=== PATIENT | female | born 1945 | race Caucasian/White ===

== ENCOUNTER 2017-01-25 01:34 | Emergency (ER) | payer SELFPAY ==
--- NOTE | 2017-01-25 02:07 | ED CLINICAL REPORT ---
Clinical Report - Physicians/Mid Levels [facility] [address] [place] [place] [address] 01/25/2017 1:37 Patient: CHONG MINER Time Seen: 01:37. Arrived- By ambulance. Historian- patient and EMS personnel. HISTORY OF PRESENT ILLNESS Chief Complaint: SKIN RASH. This started about 2 months ago and is still present. It was gradual in onset and has been constant and waxing/waning. It is described as itchy. It has been generalized in location and located on the right upper extremity and right lower extremity. A possible cause has been identified. Recent medical care: The patient was seen recently at another facility in a clinic. Seen for similar symptoms. ( she describes a treatment regimen that is consistent with scabies). REVIEW OF SYSTEMS No chills, fever, sweats, calf pain or chest pain. No abdominal pain, black stools, bloody stools, constipation or diarrhea. No nausea, vomiting or urinary problems. She has had a cough productive of moderate amounts of sputum (chronically). The patient is a smoker. No change in baseline cough. She has had mild pedal edema involving the right and left leg (chronically). All systems otherwise negative, except as recorded above. PAST HISTORY Problems: Pedal Edema. COPD - Chronic Obstructive Pulmonary Disease. Asthma. Additional Surgeries: Colon Polyps. Hysterectomy. Tonsillectomy. Medications: Oil of Lavender. Allergies: No Known Drug Allergy. SOCIAL HISTORY Current every day heavy tobacco smoker- 1-2 packs per day. History of occasional drug use: marijuana. No alcohol use. FAMILY HISTORY her daughter with whom she resides presents with similar symptoms. ADDITIONAL NOTES The nursing notes have been reviewed. PHYSICAL EXAM Vital Signs: 01/25/2017 01:33 BP: 165/78. HR: 87. RR: 16. O2 saturation: 91%. Temp: 98 F. Pain level now: 3/10. Have been reviewed. Oxygen saturation: 95 % room air during my evaluation. Appearance: Alert. Eyes: Pupils equal, round and reactive to light. Neck: Neck supple. CVS: Normal heart rate and rhythm. Heart sounds normal. Respiratory: No respiratory distress. Decreased air movement. No rales, rhonchi or wheezes. Abdomen: Nontender. No organomegaly. Skin: No erythema. No cellulitis. Rash present on the right hand and left hand. Rash present on the right foot and left foot. Extremities: Bilateral mild pitting edema of the lower extremities. No calf tenderness. PROGRESS AND PROCEDURES Course of Care: Patient is stable. Patient/family counseled. Old medical records reviewed. Disposition: Discharged. Condition: stable. CLINICAL IMPRESSION Skin rash. Possible contact dermatitis. INSTRUCTIONS Warnings: Further evaluation is necessary. GENERAL WARNINGS: Return or contact your physician immediately if your condition worsens or changes unexpectedly, if not improving as expected, or if other problems arise. Your Current Medications: STOP TAKING THE FOLLOWING MEDICATIONS: Oil of Lavender*. CONTINUE TAKING THE FOLLOWING MEDICATIONS: HydrOXYzine HCl Oral : 25 mg, prn, for anxiety. Prescription Medications: Hydrocortisone 1% cream: apply to affected areas three times daily for 1 week, as needed. Dispense fifteen (15) grams. Substitution is permissible. Follow-up: Follow up with your doctor in seven days. Call for an appointment. Follow up with a gimp buttonhole machine operator- as recommended by your primary care physician- if not better. Understanding of the discharge instructions verbalized by patient. (Electronically signed by Jg Valle MD 01/25/2017 8:47)
--- NOTE | 2017-01-25 02:07 | ED NURSING NOTES ---
Clinical Report - Nurses [facility] [address] [place] [address] 01/25/2017 1:37 Patient: CHONG MINER TRIAGE Triage time 01:30 Jan 25 2017. Acuity: LEVEL 3. Chief Complaint: (Insect Ifestation and Pollywogs in her stool). Alert. LIZZETTE COMA SCORE: [place] Coma Scale: 15- eyes open spontaneously (4); best verbal response- oriented x 4 (5); best motor response- obeys commands (6). --01:49 Jagdish Greer R.N. 01:33 01/25/17. BP: 165/78. HR: 87. RR: 16. O2 saturation: 91%. Temp: 98 F. Pain level now: 01/12. --01:49 Jagdish Greer R.N. 01:33. --03:47 Jagdish Greer R.N. Weight: 81.6 kg stated. Height/Length: 66 inches Per Patient. BMI: 29. --01:48 Jagdish Greer R.N. Medications Oil of Lavender. --01:44 Jagdish Greer R.N. HydrOXYzine HCl Oral 25 mg, as needed (for anxiety). --01:51 Jagdish Greer R.N. Allergies No Known Drug Allergy. --01:42 Jagdish Greer R.N. Medication/allergy information source: the patient. --01:49 Jagdish Greer R.N. History Arrived by EMS. Historian: patient. Accompanied by daughter. [facility] ( Insect Infestation and pollywogs in her stools). Onset. (about 2 months ago). She has had a cough. Treatment MOLDER: (Oil of Lavender helps keep the insects at bay). PAST MEDICAL HX: Immunizations: status is unknown. The patient is post-menopausal. SOCIAL HX: Heavy tobacco smoker- 1-2 packs per day. History of drug use: marijuana. (rarely does pot). No alcohol use. No infectious disease exposure. ABUSE ASSESSMENT: No report of abuse. FALL RISK ASSESSMENT: Fall risk assessment completed. No fall risk identified. NUTRITIONAL RISK ASSESSMENT: The nutritional risk assessment revealed no deficiencies. FUNCTIONAL ASSESSMENT: Functional assessment: no impairments noted. LEARNING NEEDS ASSESSMENT: The learning needs assessment revealed no barriers. SKIN INTEGRITY ASSESSMENT: Skin integrity risk assessment completed. No skin integrity risk identified. --01:49 Jagdish Greer R.N. SKIN INTEGRITY ASSESSMENT: Skin integrity risk assessment was performed. (possible low SaO2 2nd to COPD). Skin integrity risk assessment completed. No skin integrity risk identified. NUTRITIONAL RISK ASSESSMENT: The nutritional risk assessment revealed no deficiencies. FUNCTIONAL ASSESSMENT: Functional assessment: no impairments noted. FALL RISK ASSESSMENT: Fall risk assessment completed. Risk factors identified include patient age greater than 65 years. LEARNING NEEDS ASSESSMENT: A learning needs assessment was performed. Factors affecting the patient's ability to learn include physical limitations. --03:47 Jagdish Greer R.N. PROBLEMS: Pedal Edema. COPD - Chronic Obstructive Pulmonary Disease. Asthma. --01:43 Jagdish Greer R.N. ADDITIONAL SURGERIES: Colon Polyps. Hysterectomy. Tonsillectomy. --01:43 Jagdish Greer R.N. Interventions ID band on patient. To treatment room. --01:49 Jagdish Greer R.N. PHYSICAL ASSESSMENT GENERAL / NEURO / PSYCH: Alert. Oriented X 4. HEENT: No facial asymmetry noted. Mucous membranes are pink. RESPIRATORY: Mild respiratory distress. CVS: Normal sinus rhythm noted. GI / : Abdomen soft. SKIN: Skin is warm and dry. Normal skin turgor. --01:50 Jagdish Greer R.N. NURSING PROGRESS NOTES Patient gowned. Reassurance given. Patient identifiers checked. Call light placed in reach. Side rails up x 1. Bed placed in lowest position. Brakes of bed on. Patient ready for evaluation- chart flagged and ED physician notified. --01:50 Jagdish Greer R.N. DISPOSITION / DISCHARGE Departure time: 214. --02:35 Jagdish Greer R.N. 02:15. Condition at departure: improved. No learning barriers present. Discharge instructions provided and reviewed with the patient. Reviewed medication(s) (prescription given to pt). Reviewed referral to family practice. Patient verbalized understanding. Written instructions provided in Maltese. The patient was discharged by the physician. She was discharged home and accompanied by family. She left the Emergency Department ambulatory and via private vehicle. Family member driving. --02:38 Jagdish Greer R.N. Locked/Released at 01/25/2017 3:47 by Jagdish Greer R.N.
--- NOTE | 2017-01-25 02:07 | ED NURSING NOTES ---
Clinical Report - Nurses [facility] [address] [place] [address] 01/25/2017 1:37 Patient: CHONG MINER TRIAGE Triage time 01:30 Jan 25 2017. Acuity: LEVEL 3. Chief Complaint: (Insect Ifestation and Pollywogs in her stool). Alert. LIZZETTE COMA SCORE: [place] Coma Scale: 15- eyes open spontaneously (4); best verbal response- oriented x 4 (5); best motor response- obeys commands (6). --01:49 Jagdish Greer R.N. 01:33 01/25/17. BP: 165/78. HR: 87. RR: 16. O2 saturation: 91%. Temp: 98 F. Pain level now: 01/12. --01:49 Jagdish Greer R.N. 01:33. --03:47 Jagdish Greer R.N. Weight: 81.6 kg stated. Height/Length: 66 inches Per Patient. BMI: 29. --01:48 Jagdish Greer R.N. Medications Oil of Lavender. --01:44 Jagdish Greer R.N. HydrOXYzine HCl Oral 25 mg, as needed (for anxiety). --01:51 Jagdish Greer R.N. Allergies No Known Drug Allergy. --01:42 Jagdish Greer R.N. Medication/allergy information source: the patient. --01:49 Jagdish Greer R.N. History Arrived by EMS. Historian: patient. Accompanied by daughter. [facility] ( Insect Infestation and pollywogs in her stools). Onset. (about 2 months ago). She has had a cough. Treatment STRATEGIC ACCOUNT EXECUTIVE: (Oil of Lavender helps keep the insects at bay). PAST MEDICAL HX: Immunizations: status is unknown. The patient is post-menopausal. SOCIAL HX: Heavy tobacco smoker- 1-2 packs per day. History of drug use: marijuana. (rarely does pot). No alcohol use. No infectious disease exposure. ABUSE ASSESSMENT: No report of abuse. FALL RISK ASSESSMENT: Fall risk assessment completed. No fall risk identified. NUTRITIONAL RISK ASSESSMENT: The nutritional risk assessment revealed no deficiencies. FUNCTIONAL ASSESSMENT: Functional assessment: no impairments noted. LEARNING NEEDS ASSESSMENT: The learning needs assessment revealed no barriers. SKIN INTEGRITY ASSESSMENT: Skin integrity risk assessment completed. No skin integrity risk identified. --01:49 Jagdish Greer R.N. SKIN INTEGRITY ASSESSMENT: Skin integrity risk assessment was performed. (possible low SaO2 2nd to COPD). Skin integrity risk assessment completed. No skin integrity risk identified. NUTRITIONAL RISK ASSESSMENT: The nutritional risk assessment revealed no deficiencies. FUNCTIONAL ASSESSMENT: Functional assessment: no impairments noted. FALL RISK ASSESSMENT: Fall risk assessment completed. Risk factors identified include patient age greater than 65 years. LEARNING NEEDS ASSESSMENT: A learning needs assessment was performed. Factors affecting the patient's ability to learn include physical limitations. --03:47 Jagdish Greer R.N. PROBLEMS: Pedal Edema. COPD - Chronic Obstructive Pulmonary Disease. Asthma. --01:43 Jagdish Greer R.N. ADDITIONAL SURGERIES: Colon Polyps. Hysterectomy. Tonsillectomy. --01:43 Jagdish Greer R.N. Interventions ID band on patient. To treatment room. --01:49 Jagdish Greer R.N. PHYSICAL ASSESSMENT GENERAL / NEURO / PSYCH: Alert. Oriented X 4. HEENT: No facial asymmetry noted. Mucous membranes are pink. RESPIRATORY: Mild respiratory distress. CVS: Normal sinus rhythm noted. GI / : Abdomen soft. SKIN: Skin is warm and dry. Normal skin turgor. --01:50 Jagdish Greer R.N. NURSING PROGRESS NOTES Patient gowned. Reassurance given. Patient identifiers checked. Call light placed in reach. Side rails up x 1. Bed placed in lowest position. Brakes of bed on. Patient ready for evaluation- chart flagged and ED physician notified. --01:50 Jagdish Greer R.N. DISPOSITION / DISCHARGE Departure time: 214. --02:35 Jagdish Greer R.N. 02:15. Condition at departure: improved. No learning barriers present. Discharge instructions provided and reviewed with the patient. Reviewed medication(s) (prescription given to pt). Reviewed referral to family practice. Patient verbalized understanding. Written instructions provided in [place] Island[place]. The patient was discharged by the physician. She was discharged home and accompanied by family. She left the Emergency Department ambulatory and via private vehicle. Family member driving. --02:38 Jagdish Greer R.N. Locked/Released at 01/25/2017 3:47 by Jagdish Greer R.N.
--- NOTE | 2017-01-25 02:07 | ED CLINICAL REPORT ---
Clinical Report - Physicians/Mid Levels [facility] [address] [place] [address] 01/25/2017 1:37 Patient: CHONG MINER Time Seen: 01:37. Arrived- By ambulance. Historian- patient and EMS personnel. HISTORY OF PRESENT ILLNESS Chief Complaint: SKIN RASH. This started about 2 months ago and is still present. It was gradual in onset and has been constant and waxing/waning. It is described as itchy. It has been generalized in location and located on the right upper extremity and right lower extremity. A possible cause has been identified. Recent medical care: The patient was seen recently at another facility in a clinic. Seen for similar symptoms. ( she describes a treatment regimen that is consistent with scabies). REVIEW OF SYSTEMS No chills, fever, sweats, calf pain or chest pain. No abdominal pain, black stools, bloody stools, constipation or diarrhea. No nausea, vomiting or urinary problems. She has had a cough productive of moderate amounts of sputum (chronically). The patient is a smoker. No change in baseline cough. She has had mild pedal edema involving the right and left leg (chronically). All systems otherwise negative, except as recorded above. PAST HISTORY Problems: Pedal Edema. COPD - Chronic Obstructive Pulmonary Disease. Asthma. Additional Surgeries: Colon Polyps. Hysterectomy. Tonsillectomy. Medications: Oil of Lavender. Allergies: No Known Drug Allergy. SOCIAL HISTORY Current every day heavy tobacco smoker- 1-2 packs per day. History of occasional drug use: marijuana. No alcohol use. FAMILY HISTORY her daughter with whom she resides presents with similar symptoms. ADDITIONAL NOTES The nursing notes have been reviewed. PHYSICAL EXAM Vital Signs: 01/25/2017 01:33 BP: 165/78. HR: 87. RR: 16. O2 saturation: 91%. Temp: 98 F. Pain level now: 3/10. Have been reviewed. Oxygen saturation: 95 % room air during my evaluation. Appearance: Alert. Eyes: Pupils equal, round and reactive to light. Neck: Neck supple. CVS: Normal heart rate and rhythm. Heart sounds normal. Respiratory: No respiratory distress. Decreased air movement. No rales, rhonchi or wheezes. Abdomen: Nontender. No organomegaly. Skin: No erythema. No cellulitis. Rash present on the right hand and left hand. Rash present on the right foot and left foot. Extremities: Bilateral mild pitting edema of the lower extremities. No calf tenderness. PROGRESS AND PROCEDURES Course of Care: Patient is stable. Patient/family counseled. Old medical records reviewed. Disposition: Discharged. Condition: stable. CLINICAL IMPRESSION Skin rash. Possible contact dermatitis. INSTRUCTIONS Warnings: Further evaluation is necessary. GENERAL WARNINGS: Return or contact your physician immediately if your condition worsens or changes unexpectedly, if not improving as expected, or if other problems arise. Your Current Medications: STOP TAKING THE FOLLOWING MEDICATIONS: Oil of Lavender*. CONTINUE TAKING THE FOLLOWING MEDICATIONS: HydrOXYzine HCl Oral : 25 mg, prn, for anxiety. Prescription Medications: Hydrocortisone 1% cream: apply to affected areas three times daily for 1 week, as needed. Dispense fifteen (15) grams. Substitution is permissible. Follow-up: Follow up with your doctor in seven days. Call for an appointment. Follow up with a warp hanger- as recommended by your primary care physician- if not better. Understanding of the discharge instructions verbalized by patient. (Electronically signed by Jg Valle MD 01/25/2017 8:47)
--- NOTE | 2017-01-25 08:47 | ED MED RECONCILIATION SUMMARY ---
Patient: CHONG MINER Medication Reconciliation Report VisitID: [id number] [address] [place] [address] 71y, F Registration Date/Time: 01/25/2017 Weight: 81.6 kg Height/Length: 66 in. BMI: 29.0 ALLERGIES: No Known Drug Allergy The patient's Home Medications are listed below: STOP TAKING THE FOLLOWING MEDICATIONS: Oil of Lavender CONTINUE TAKING THE FOLLOWING MEDICATIONS: HydrOXYzine HCl Oral 25 mg, for anxiety The source(s) of the original Home Medication information: patient The following Medications were given to the patient in the Emergency Department: None. The following Medications were prescribed to the patient: Hydrocortisone 1% cream: apply to affected areas three times daily for 1 week, as needed. Dispense fifteen (15) grams. Substitution is permissible. -- Jg Valle MD
--- NOTE | 2017-01-25 08:47 | ED MED RECONCILIATION SUMMARY ---
Patient: CHONG MINER Medication Reconciliation Report [facility] VisitID: [id number] [address] [place] [address] 71y, F Registration Date/Time: 01/25/2017 Weight: 81.6 kg Height/Length: 66 in. BMI: 29.0 ALLERGIES: No Known Drug Allergy The patient's Home Medications are listed below: STOP TAKING THE FOLLOWING MEDICATIONS: Oil of Lavender CONTINUE TAKING THE FOLLOWING MEDICATIONS: HydrOXYzine HCl Oral 25 mg, for anxiety The source(s) of the original Home Medication information: patient The following Medications were given to the patient in the Emergency Department: None. The following Medications were prescribed to the patient: Hydrocortisone 1% cream: apply to affected areas three times daily for 1 week, as needed. Dispense fifteen (15) grams. Substitution is permissible. -- Jg Valle MD
--- NOTE | 2017-01-25 08:47 | ED MAR SUMMARY ---
..... Medication Administration Record [facility] [address] [place], [place] [id number] Patient: CHONG MINER Visit ID: [id number] 71y, F Weight: 81.6 kg Height/Length: 66 in BMI: 29 ALLERGIES: No Known Drug Allergy
--- NOTE | 2017-01-25 08:47 | ED MAR SUMMARY ---
..... Medication Administration Record [facility] [address] [place], [place] [id number] Patient: CHONG MINER Visit ID: [id number] 71y, F Weight: 81.6 kg Height/Length: 66 in BMI: 29 ALLERGIES: No Known Drug Allergy
--- NOTE | 2017-01-25 08:47 | ED DISCHARGE INSTRUCTIONS ---
Patient: CHONG MINER General Instructions [facility] VisitID: [id number] [place] [place] [address] 71y, F Registration Date/Time: 01/25/2017 Skin rash. INSTRUCTIONS Warnings: Further evaluation is necessary. GENERAL WARNINGS: Return or contact your physician immediately if your condition worsens or changes unexpectedly, if not improving as expected, or if other problems arise. Your Current Medications: STOP TAKING THE FOLLOWING MEDICATIONS: Oil of Lavender*. CONTINUE TAKING THE FOLLOWING MEDICATIONS: HydrOXYzine HCl Oral : 25 mg, prn, for anxiety. Prescription Medications: Hydrocortisone 1% cream: apply to affected areas three times daily for 1 week, as needed. Dispense fifteen (15) grams. Substitution is permissible. Follow-up: Follow up with your doctor in seven days. Call for an appointment. Follow up with a photography instructor- as recommended by your primary care physician- if not better. Understanding of the discharge instructions verbalized by patient. ADDITIONAL INFORMATION Dermatitis (Non-Specific) Dermatitis is an inflammation of the skin. The exact cause of your rash is not certain. However, this rash does not appear to be an infection or contagious illness. Taking care of the rash at home should help relieve your symptoms. Home Care: Keep the areas of rash clean by washing it daily. This also helps to keep the skin moist. Use a neutral pH soap such as Dove or Lever 2000. Apply a moisturizing lotion after bathing to prevent dry skin. Avoid skin irritants (wool or silk clothing, grease, oils, some medicines, harsh soaps, and detergents). Wear absorbent, soft fabrics next to the skin rather than rough or scratchy materials. Unless another medicine was prescribed, you may use Hydrocortisone cream (which you can get without a prescription) to reduce the inflammation. Follow Up: Make an appointment with your doctor in the next 1 to 2 weeks if your symptoms do not improve with the above measures. Get Prompt Medical Attention if any of the following occur: Increasing area of redness or pain in the skin Yellow crusts or drainage from the rash Joint pain New rash that appears in other areas of the body Fever of 100.4F (38C) or higher, or as directed by your healthcare provider You have been given the following additional information: Dermatitis, Non-Specific (Electronically signed by Jg Valle MD 01/25/2017 8:47)
--- NOTE | 2017-01-25 08:47 | ED DISCHARGE INSTRUCTIONS ---
Patient: CHONG MINER General Instructions [facility] VisitID: [id number] [place] [address] 71y, F Registration Date/Time: 01/25/2017 Skin rash. INSTRUCTIONS Warnings: Further evaluation is necessary. GENERAL WARNINGS: Return or contact your physician immediately if your condition worsens or changes unexpectedly, if not improving as expected, or if other problems arise. Your Current Medications: STOP TAKING THE FOLLOWING MEDICATIONS: Oil of Lavender*. CONTINUE TAKING THE FOLLOWING MEDICATIONS: HydrOXYzine HCl Oral : 25 mg, prn, for anxiety. Prescription Medications: Hydrocortisone 1% cream: apply to affected areas three times daily for 1 week, as needed. Dispense fifteen (15) grams. Substitution is permissible. Follow-up: Follow up with your doctor in seven days. Call for an appointment. Follow up with a highway construction inspector- as recommended by your primary care physician- if not better. Understanding of the discharge instructions verbalized by patient. ADDITIONAL INFORMATION Dermatitis (Non-Specific) Dermatitis is an inflammation of the skin. The exact cause of your rash is not certain. However, this rash does not appear to be an infection or contagious illness. Taking care of the rash at home should help relieve your symptoms. Home Care: Keep the areas of rash clean by washing it daily. This also helps to keep the skin moist. Use a neutral pH soap such as Dove or Lever 2000. Apply a moisturizing lotion after bathing to prevent dry skin. Avoid skin irritants (wool or silk clothing, grease, oils, some medicines, harsh soaps, and detergents). Wear absorbent, soft fabrics next to the skin rather than rough or scratchy materials. Unless another medicine was prescribed, you may use Hydrocortisone cream (which you can get without a prescription) to reduce the inflammation. Follow Up: Make an appointment with your doctor in the next 1 to 2 weeks if your symptoms do not improve with the above measures. Get Prompt Medical Attention if any of the following occur: Increasing area of redness or pain in the skin Yellow crusts or drainage from the rash Joint pain New rash that appears in other areas of the body Fever of 100.4F (38C) or higher, or as directed by your healthcare provider You have been given the following additional information: Dermatitis, Non-Specific (Electronically signed by Jg Valle MD 01/25/2017 8:47)
== END 2017-01-25 02:15 | disposition left against medical advice (07) ==
LOC: ED SRH 01:34
DX: R21 Rash and other nonspecific skin eruption (principal); J44.9 Chronic obstructive pulmonary disease, unspecified; F17.210 Nicotine dependence, cigarettes, uncomplicated